=== PATIENT | male | born 1985 | race Caucasian/White ===

== ENCOUNTER 2017-05-16 07:33 | Emergency (ER) | payer OTHER ==
[~2017-05-16] VITALS: Ht 172.7 cm; Wt 78.0 kg
[2017-05-16 07:35] VITALS: BP 125/86
[2017-05-16] MEDS ORDERED: CEPH-569 PO (07:40)
[2017-05-16] MEDS ORDERED: BACITRACIN ZINC OINT UDPKT TOP ONE (08:15)
== END 2017-05-16 09:39 | disposition home or self-care (01) ==
LOC: ER 07:46
DX: L02.416 Cutaneous abscess of left lower limb (principal)
CPT/HCPCS: 10060; 10160; 99283

== ENCOUNTER 2017-05-17 09:43 | Emergency (ER) | payer OTHER ==
[~2017-05-17] VITALS: Ht 167.6 cm; Wt 71.0 kg
[~2017-05-17 09:43] MED LIST: CEPH-569 PO
[2017-05-17 09:52] VITALS: BP 119/84
[2017-05-17] MEDS ORDERED: BACITRACIN ZINC OINT UDPKT TOP ONE (10:30)
== END 2017-05-17 10:43 | disposition home or self-care (01) ==
LOC: ER 10:08
DX: L02.416 Cutaneous abscess of left lower limb (principal)
CPT/HCPCS: 10060; 99283

== ENCOUNTER 2017-06-12 12:57 | Emergency (ER) | payer OTHER ==
[~2017-06-12] VITALS: Ht 172.7 cm; Wt 73.0 kg
[2017-06-12 13:33] VITALS: BP 141/82
[2017-06-12] MEDS ORDERED: LIDOCAINE HCL 1% 20ML VIAL (Pyxis) INJ INFIL ONE (17:30)
[2017-06-12] MEDS ORDERED: BACITRACIN ZINC OINT UDPKT TOP ONE (17:30)
== END 2017-06-12 18:42 | disposition home or self-care (01) ==
LOC: ER 13:07
DX: L02.416 Cutaneous abscess of left lower limb (principal); F17.200 Nicotine dependence, unspecified, uncomplicated; Z53.21 Procedure and treatment not carried out due to patient leaving prior to being seen by health care provider
CPT/HCPCS: 10060; 87070; 87077; 87186; 87205; 99284; J3490; Z7610

== ENCOUNTER 2017-06-14 07:06 | Emergency (ER) | payer OTHER ==
[~2017-06-14] VITALS: Ht 170.2 cm; Wt 73.0 kg
[2017-06-14 07:17] VITALS: BP 130/88
== END 2017-06-14 11:20 | disposition home or self-care (01) ==
LOC: ER 07:23
DX: Z48.817 Encounter for surgical aftercare following surgery on the skin and subcutaneous tissue (principal); F17.200 Nicotine dependence, unspecified, uncomplicated; Z98.890 Other specified postprocedural states
CPT/HCPCS: 99283

== ENCOUNTER 2017-06-17 06:45 | Emergency (ER) | payer OTHER ==
[~2017-06-17] VITALS: Ht 170.2 cm; Wt 73.0 kg
[2017-06-17 06:54] VITALS: BP 125/72
== END 2017-06-17 09:38 | disposition left against medical advice (07) ==
LOC: ER 06:45
DX: Z48.00 Encounter for change or removal of nonsurgical wound dressing (principal); Z53.21 Procedure and treatment not carried out due to patient leaving prior to being seen by health care provider

== ENCOUNTER 2018-05-06 09:19 | Emergency (ER) | payer OTHER ==
[~2018-05-06] VITALS: Ht 170.2 cm; Wt 73.0 kg
[2018-05-06] MEDS ORDERED: BACITRACIN ZINC OINT UDPKT TOP ONE (11:30)
[2018-05-06] MEDS ORDERED: IBUPROFEN 600MG TABLET PO ONE (11:30)
[2018-05-06] MEDS ORDERED: LIDOCAINE HCL 1% 20ML VIAL (Pyxis) INJ INFIL ONE (11:30)
[2018-05-06 13:03] VITALS: BP 128/82
== END 2018-05-06 13:06 | disposition home or self-care (01) ==
LOC: ER 09:19
DX: L02.416 Cutaneous abscess of left lower limb (principal); F17.200 Nicotine dependence, unspecified, uncomplicated; Z98.890 Other specified postprocedural states
CPT/HCPCS: 10060; 99283; J3490

== ENCOUNTER 2018-05-08 08:25 | Emergency (ER) | payer OTHER ==
[~2018-05-08] VITALS: Ht 172.7 cm; Wt 73.0 kg
[2018-05-08 09:14] VITALS: BP 128/70
== END 2018-05-08 09:21 | disposition home or self-care (01) ==
LOC: ER 09:21
DX: Z48.00 Encounter for change or removal of nonsurgical wound dressing (principal)
CPT/HCPCS: 99283

== ENCOUNTER 2018-05-10 08:20 | Emergency (ER) | payer OTHER ==
[~2018-05-10] VITALS: Ht 170.2 cm; Wt 78.3 kg
[2018-05-10 08:24] VITALS: BP 130/75
== END 2018-05-10 09:25 | disposition home or self-care (01) ==
LOC: ER 08:20
DX: L02.416 Cutaneous abscess of left lower limb (principal); F17.200 Nicotine dependence, unspecified, uncomplicated; Z98.890 Other specified postprocedural states
CPT/HCPCS: 99281; 99282; 99283

== ENCOUNTER 2018-09-21 18:38 | Emergency (ER) | payer OTHER ==
[~2018-09-21] VITALS: Ht 167.6 cm; Wt 73.0 kg
[2018-09-21] MEDS ORDERED: BACITRACIN ZINC OINT UDPKT TOP ONE (20:45)
[2018-09-21] MEDS ORDERED: LIDOCAINE HCL/PF 1% 10 MG/ML 5ML VIAL IJ ONE (20:45)
[2018-09-21 21:11] VITALS: BP 125/75
== END 2018-09-21 21:12 | disposition home or self-care (01) ==
LOC: ER 18:38
DX: L02.416 Cutaneous abscess of left lower limb (principal); Z88.8 Allergy status to other drugs, medicaments and biological substances
CPT/HCPCS: 10060; 99283; J3490; Z7610

== ENCOUNTER 2018-09-23 14:25 | Emergency (ER) | payer OTHER ==
[~2018-09-23] VITALS: Ht 170.2 cm; Wt 73.0 kg
[2018-09-23 14:28] VITALS: BP 125/78
== END 2018-09-23 15:07 | disposition home or self-care (01) ==
LOC: ER 14:25
DX: L02.416 Cutaneous abscess of left lower limb (principal); Z79.899 Other long term (current) drug therapy
CPT/HCPCS: 99281; 99283

== ENCOUNTER 2019-01-29 07:20 | Emergency (ER) | payer MEDICAID, OTHER ==
[~2019-01-29] VITALS: Ht 172.7 cm; Wt 72.0 kg
[2019-01-29 09:02] VITALS: BP 118/75
== END 2019-01-29 09:05 | disposition home or self-care (01) ==
LOC: ER 07:20
DX: F22 Delusional disorders (principal); F17.210 Nicotine dependence, cigarettes, uncomplicated
CPT/HCPCS: 99281

== ENCOUNTER 2019-04-28 07:05 | Emergency (ER) | payer MEDICAID ==
[~2019-04-28] VITALS: Ht 170.2 cm; Wt 76.0 kg
[2019-04-28] MEDS ORDERED: IBUPROFEN 600MG TABLET PO ONE (07:45)
[2019-04-28] MEDS ORDERED: TETANUS, DIPHTHERIA, PERTUSSIS VAC/PF 0.5ML (>7YR OLD) IM ONE (07:45)
[2019-04-28] MEDS ORDERED: BACITRACIN ZINC OINT UDPKT TOP ONE (07:45)
[2019-04-28 08:40] VITALS: BP 121/69
== END 2019-04-28 08:43 | disposition home or self-care (01) ==
LOC: ER 07:05
DX: L02.415 Cutaneous abscess of right lower limb (principal); L90.5 Scar conditions and fibrosis of skin; F17.200 Nicotine dependence, unspecified, uncomplicated; Z48.00 Encounter for change or removal of nonsurgical wound dressing
CPT/HCPCS: 10060; 90471; 90715; 99283; A4217; Z7610

== ENCOUNTER 2019-05-01 08:43 | Emergency (ER) | payer MEDICAID, OTHER ==
[~2019-05-01] VITALS: Ht 170.2 cm; Wt 77.0 kg
[2019-05-01] MEDS: BACITRACIN ZINC OINT UDPKT TOP ONE (10:11)
[2019-05-01 10:42] VITALS: BP 114/62
== END 2019-05-01 10:53 | disposition home or self-care (01) ==
LOC: ER 08:43
DX: L02.416 Cutaneous abscess of left lower limb (principal); Z98.890 Other specified postprocedural states
CPT/HCPCS: 99283

== ENCOUNTER 2022-01-10 08:55 | Emergency (ER) | payer OTHER ==
[~2022-01-10] VITALS: Ht 177.8 cm; Wt 75.5 kg
[2022-01-10] MEDS ORDERED: IBUP-2437 PO (09:04)
[2022-01-10 09:59] LABS: HEMATOCRIT. 41.1 % (42.0-52.0); HEMOGLOBIN. 14.7 g/dL (14.0-18.0); MEAN CORPUSCULAR HEMOGLOBIN 30.9 pg (28.0-32.0); MEAN CORPUSCULAR VOLUME 86.1 fL (80.0-94.0); MEAN PLATELET VOLUME 7.4 fl (7.4-10.4); PLATELET 205 x1000/uL (130-400); RED BLOOD CELL COUNT 4.77 mill/uL (4.7-6.1); RED CELL DISTRIBUTION WIDTH 15.1 % (11.6-14.6)
[2022-01-10 10:06] LABS: CHLORIDE 99 mEq/L (98-107)
[2022-01-10 10:44] LABS: PLATELET ESTIMATE NORMAL
[2022-01-10] MEDS ORDERED: MAGNESIUM 2 G PREMIX 50 ML IV ONE (10:45)
[2022-01-10] MEDS ORDERED: POTASSIUM CHLORIDE 20MEQ TABLET SR PO ONE ×2 (10:45→12:30)
[2022-01-10] MEDS ORDERED: KETOROLAC 30MG/ML VIAL IV STA (11:19)
[2022-01-10] MEDS ORDERED: ONDANSETRON HCL 4MG/2ML INJ IV STA (11:19)
[2022-01-10] MEDS ORDERED: SODIUM CHLORIDE 0.9% 1,000 ML IV ONE (11:30)
[2022-01-10] MEDS ORDERED: ONDA4TAB11 PO (13:45)
[2022-01-10] MEDS ORDERED: IBUP-2029 MT (13:45)
[2022-01-10] MEDS ORDERED: POTA-205 MT (13:45)
[2022-01-10 14:40] VITALS: BP 130/81
== END 2022-01-10 14:47 | disposition home or self-care (01) ==
LOC: ER 08:55
DX: R07.89 Other chest pain (principal); F10.10 Alcohol abuse, uncomplicated; Y90.9 Presence of alcohol in blood, level not specified; Z20.822 Contact with and (suspected) exposure to COVID-19; Z98.890 Other specified postprocedural states
CPT/HCPCS: 36415; 71045; 80053; 83880; 84484; 85025; 87426; 93005; 96361; 96365; 96375; 99285; C9803; J1885; J2405; J3475; J7030

== ENCOUNTER 2022-01-12 12:17 | Emergency (ER) | payer OTHER ==
[~2022-01-12] VITALS: Ht 165.1 cm; Wt 77.0 kg
[~2022-01-12 12:17] MED LIST changes: +IBUP-2029 MT; +IBUP-2437 PO; +ONDA4TAB11 PO; +POTA-205 MT
[2022-01-12 12:26] VITALS: BP 154/101
[2022-01-12] MEDS ORDERED: MELA1TAB51 MT (15:03)
== END 2022-01-12 15:36 | disposition home or self-care (01) ==
LOC: ER 12:17
DX: R07.89 Other chest pain (principal)
CPT/HCPCS: 93005; 99281

== ENCOUNTER 2022-05-31 06:30 | Emergency (ER) | payer OTHER ==
[~2022-05-31] VITALS: Ht 172.7 cm; Wt 77.8 kg
[~2022-05-31 06:30] MED LIST changes: +MELA1TAB51 MT
[2022-05-31] MEDS ORDERED: ONDANSETRON 4MG ODT PO STA (08:26)
[2022-05-31 09:00] LABS: BASOPHILS % 0.3 % (0.0-2.0); EOSINOPHILS % 0.5 % (0.0-5.0); HEMATOCRIT. 43.5 % (42.0-52.0); HEMOGLOBIN. 14.8 g/dL (14.0-18.0); LYMPHOCYTES % 9.8 % (20.0-50.0); MEAN CORPUSCULAR HEMOGLOBIN 30.5 pg (28.0-32.0); MEAN CORPUSCULAR VOLUME 89.9 fL (80.0-94.0); MEAN PLATELET VOLUME 8.1 fl (7.4-10.4); MONOCYTES % 7.4 % (2.0-8.0); PLATELET 171 x1000/uL (130-400); RED BLOOD CELL COUNT 4.83 mill/uL (4.7-6.1); RED CELL DISTRIBUTION WIDTH 15.5 % (11.6-14.6)
[2022-05-31 09:06] LABS: CHLORIDE 103 mEq/L (98-107)
[2022-05-31] MEDS ORDERED: IBUPROFEN 600MG TABLET PO ONE (09:30)
[2022-05-31 10:48] VITALS: BP 132/86
[2022-06-01] MEDS ORDERED: ONDA4TAB50 MT (10:41)
[2022-06-01] MEDS ORDERED: ONDANSETRON 4MG ODT PO NR (10:45)
== END 2022-05-31 11:19 | disposition home or self-care (01) ==
LOC: ER 06:30
DX: A08.4 Viral intestinal infection, unspecified (principal); K80.20 Calculus of gallbladder without cholecystitis without obstruction; R74.01 Elevation of levels of liver transaminase levels; R04.0 Epistaxis; R22.42 Localized swelling, mass and lump, left lower limb
CPT/HCPCS: 36415; 76705; 80053; 83690; 85025; 99284; Q0162

== ENCOUNTER 2022-06-01 10:07 | Emergency (ER) | payer MEDICAID, OTHER ==
[~2022-06-01] VITALS: Ht 172.7 cm; Wt 76.0 kg
[2022-06-01 10:11] VITALS: BP 150/93
[2022-06-01] MEDS ORDERED: ONDA4TAB50 MT (10:41)
== END 2022-06-01 10:59 | disposition home or self-care (01) ==
LOC: ER 10:07
DX: K52.9 Noninfective gastroenteritis and colitis, unspecified (principal)
CPT/HCPCS: 99281

== ENCOUNTER 2022-08-10 01:19 | Emergency (ER) | payer MEDICAID ==
[~2022-08-10 01:19] MED LIST changes: +ONDA4TAB50 MT
== END 2022-08-10 03:57 | disposition left against medical advice (07) ==
LOC: ER 01:19
DX: Z53.21 Procedure and treatment not carried out due to patient leaving prior to being seen by health care provider (principal)

== ENCOUNTER 2022-08-14 13:03 | Emergency (ER) | payer MEDICAID, OTHER ==
[~2022-08-14] VITALS: Ht 160 cm; Wt 81.0 kg
[2022-08-14 13:12] VITALS: BP 132/89
[2022-08-14] MEDS ORDERED: ACETAMINOPHEN 325MG TABLET PO ONE (15:45)
[2022-08-14 15:54] LABS: HEMATOCRIT. 40.9 % (42.0-52.0); HEMOGLOBIN. 13.8 g/dL (14.0-18.0); MEAN CORPUSCULAR HEMOGLOBIN 30.6 pg (28.0-32.0); MEAN CORPUSCULAR VOLUME 91.1 fL (80.0-94.0); MEAN PLATELET VOLUME 7.9 fl (7.4-10.4); PLATELET 296 x1000/uL (130-400); RED BLOOD CELL COUNT 4.49 mill/uL (4.7-6.1); RED CELL DISTRIBUTION WIDTH 16.1 % (11.6-14.6)
[2022-08-14 16:09] LABS: CHLORIDE 103 mEq/L (98-107)
[2022-08-14 16:36] LABS: PLATELET ESTIMATE NORMAL
== END 2022-08-14 17:25 | disposition home or self-care (01) ==
LOC: ER 13:03
DX: J06.9 Acute upper respiratory infection, unspecified (principal); M25.562 Pain in left knee; I49.9 Cardiac arrhythmia, unspecified
CPT/HCPCS: 36415; 71045; 73562; 80053; 83880; 84484; 85025; 93005; 99285

== ENCOUNTER 2023-01-09 11:48 | Emergency (ER) | payer OTHER ==
[~2023-01-09] VITALS: Ht 172.7 cm; Wt 78.0 kg
[2023-01-09 11:59] VITALS: BP 123/64; RESP 12; TEMP 98.6; O2SAT 97
[2023-01-09 12:01] VITALS: PULSE 83
[2023-01-09 12:18] LABS: CLARITY URINE CLEAR (CLEAR); COLOR URINE YELLOW (YELLOW); GLUCOSE URINE NEGATIVE (NEGATIVE); KETONES URINE TRACE (NEGATIVE); LEUKOCYTE ESTERASE URINE NEGATIVE (NEGATIVE); NITRITE URINE NEGATIVE (NEGATIVE); OCCULT BLOOD URINE NEGATIVE (NEGATIVE); PH URINE 5.5 (4.5-8.0); PROTEIN URINE NEGATIVE (NEGATIVE); SPECIFIC GRAVITY URINE 1.027 (1.005-1.030); UROBILINOGEN URINE 0.2 E.U./dL (0.2-1.0)
[2023-01-09] MEDS ORDERED: FLUC150T46 PO (13:23)
[2023-01-09] MEDS ORDERED: NAPR-681 PO (13:23)
[2023-01-09] MEDS ORDERED: CLOT15CR27 TP (13:23)
[2023-01-09] MEDS ORDERED: DOXY-456 PO (13:23)
== END 2023-01-09 13:37 | disposition home or self-care (01) ==
LOC: ER 12:38
DX: B35.6 Tinea cruris (principal); Z79.899 Other long term (current) drug therapy
CPT/HCPCS: 81003; 82962; 99283

== ENCOUNTER 2023-04-18 05:16 | Emergency (ER) | payer OTHER ==
[~2023-04-18] VITALS: Ht 172.7 cm; Wt 82.0 kg
[~2023-04-18 05:16] MED LIST changes: +CLOT15CR27 TP; +DOXY-456 PO; +FLUC150T46 PO; +NAPR-681 PO
[2023-04-18 05:25] VITALS: O2SAT 99
[2023-04-18 06:06] LABS: CLARITY URINE CLEAR (CLEAR); COLOR URINE DARK YELLOW (YELLOW); GLUCOSE URINE NEGATIVE (NEGATIVE); KETONES URINE NEGATIVE (NEGATIVE); LEUKOCYTE ESTERASE URINE NEGATIVE (NEGATIVE); NITRITE URINE NEGATIVE (NEGATIVE); OCCULT BLOOD URINE NEGATIVE (NEGATIVE); PROTEIN URINE NEGATIVE (NEGATIVE); SPECIFIC GRAVITY URINE 1.013 (1.005-1.030)
[2023-04-18 06:20] LABS: BASOPHILS % 0.6 % (0.0-2.0); EOSINOPHILS % 0.4 % (0.0-5.0); HEMATOCRIT. 37.5 % (42.0-52.0); HEMOGLOBIN. 12.9 g/dL (14.0-18.0); LYMPHOCYTES % 25.1 % (20.0-50.0); MEAN CORPUSCULAR HGB CONC 34.5 g/dL (31.0-37.0); MEAN CORPUSCULAR VOLUME 86.8 fL (80.0-94.0); MEAN PLATELET VOLUME 8.4 fl (7.4-10.4); MONOCYTES % 7.3 % (2.0-8.0); NEUTROPHILS % 66.6 % (40.0-76.0); PLATELET 155 x1000/uL (130-400); RED BLOOD CELL COUNT 4.32 mill/uL (4.7-6.1); RED CELL DISTRIBUTION WIDTH 15.4 % (11.6-14.6); WHITE BLOOD COUNT 6.1 x1000/uL (4.5-11.0)
[2023-04-18 06:20] LABS: *AMPHETAMINES SCREEN URINE NEGATIVE (NEGATIVE); *BARBITURATES SCREEN URINE NEGATIVE (NEGATIVE); *BENZODIAZEPINES SCREEN URINE NEGATIVE (NEGATIVE); *COCAINE SCREEN URINE NEGATIVE (NEGATIVE); CANNABINOID URINE SCREEN NEGATIVE (NEGATIVE); ECSTASY MDMA SCREEN URINE NEGATIVE (NEGATIVE); METHADONE URINE SCREEN NEGATIVE (NEGATIVE); OPIATES URINE SCREEN NEGATIVE (NEGATIVE); PHENCYCLIDINE URINE SCREEN NEGATIVE (NEGATIVE)
[2023-04-18 06:37] LABS: CHLORIDE 107 mEq/L (98-107); INDEX HEMOLYSI 1 (1-3); INDEX ICTERIC 1 (1-4); INDEX LIPEMIC 1 (1-3); SODIUM 138 mEq/L (136-145)
[2023-04-18 06:45] LABS: ALANINE AMINOTRANSFERASE 58 IU/L (13-61); ALBUMIN 3.1 g/dL (3.4-5.0); ASPARTATE AMINOTRANSFERASE 63 IU/L (15-37); BILIRUBIN TOTAL 1.3 mg/dL (0.1-1.0); CALCIUM 7.9 mg/dL (8.5-10.1); CARBON DIOXIDE 25 mEq/L (21-32); CREATININE 0.7 mg/dL (0.6-1.3); ETHANOL BLOOD < 10 mg/dL (<10); GLUCOSE 113 mg/dL (70-105); PROTEIN TOTAL 6.3 g/dL (6.0-8.3); UREA NITROGEN BLOOD 5 mg/dL (7-21)
[2023-04-18 11:33] VITALS: BP 125/78; PULSE 80; RESP 16; TEMP 98.6
== END 2023-04-18 12:48 | disposition home or self-care (01) ==
LOC: ER 05:16
DX: Z00.00 Encounter for general adult medical examination without abnormal findings (principal); R44.0 Auditory hallucinations; Z79.899 Other long term (current) drug therapy; Z20.822 Contact with and (suspected) exposure to COVID-19
CPT/HCPCS: 80053; 80305; 81003; 80320; 85025; 36415; 99283; 87426; C9803; G0480

== ENCOUNTER 2024-01-09 16:10 | Emergency (ER) | payer OTHER ==
[~2024-01-09] VITALS: Ht 165.1 cm; Wt 80.0 kg
[2024-01-09 16:16] VITALS: BP 136/86; PULSE 89; RESP 18; O2SAT 100
[2024-01-09 17:29] LABS: CHLORIDE 98 mEq/L (98-107); POTASSIUM 3.8 mEq/L (3.5-5.1); SODIUM 135 mEq/L (136-145)
[2024-01-09 17:30] LABS: CARBON DIOXIDE 29 mEq/L (21-32)
[2024-01-09 17:31] LABS: BASOPHILS % 0.5 % (0.0-2.0); EOSINOPHILS % 0.3 % (0.0-5.0); HEMATOCRIT. 42.4 % (42.0-52.0); HEMOGLOBIN. 14.7 g/dL (14.0-18.0); LYMPHOCYTES % 18.8 % (20.0-50.0); MEAN CORPUSCULAR HEMOGLOBIN 31.1 pg (28.0-32.0); MEAN CORPUSCULAR HGB CONC 34.6 g/dL (31.0-37.0); MEAN CORPUSCULAR VOLUME 89.8 fL (80.0-94.0); MEAN PLATELET VOLUME 9.1 fl (7.4-10.4); MONOCYTES % 5.7 % (2.0-8.0); NEUTROPHILS % 74.7 % (40.0-76.0); PLATELET 194 x1000/uL (130-400); RED BLOOD CELL COUNT 4.73 mill/uL (4.7-6.1); WHITE BLOOD COUNT 8.2 x1000/uL (4.5-11.0)
[2024-01-09 17:33] LABS: INR 0.9; PARTIAL THROMBOPLASTIN TIME 24.1 sec (23.4-31.0); PROTHROMBIN TIME 10.6 sec (9.6-11.0)
[2024-01-09 17:35] LABS: CREATININE 0.6 mg/dL (0.6-1.3); GLUCOSE 96 mg/dL (70-105); UREA NITROGEN BLOOD 7 mg/dL (9-23)
[2024-01-09 17:37] LABS: ALANINE AMINOTRANSFERASE 53 IU/L (10-49); ALBUMIN 4.4 g/dL (3.2-4.8); ASPARTATE AMINOTRANSFERASE 73 IU/L (<34); BILIRUBIN DIRECT 0.6 mg/dL (<=3.0); BILIRUBIN TOTAL 2.1 mg/dL (0.1-1.0); PROTEIN TOTAL 6.8 g/dL (6.0-8.3)
[2024-01-09 19:13] VITALS: TEMP 98.6
[2024-01-09] MEDS: DIPHENOXYLATE/ATROPINE 2.5/0.025MG TABLET PO ONE (19:13)
[2024-01-09] MEDS: ACETAMINOPHEN 325MG TABLET PO ONE (19:13)
[2024-01-09] MEDS ORDERED: IBUP-1523 MT (19:18)
[2024-01-09] MEDS ORDERED: ONDA4TAB50 MT (19:18)
[2024-01-09] MEDS ORDERED: DIPH1TAB24 MT (19:18)
[2024-01-09] MEDS ORDERED: TOPUD MT (19:18)
[2024-01-09 19:34] LABS: CLARITY URINE CLEAR (CLEAR); COLOR URINE ORANGE (YELLOW); GLUCOSE URINE NEGATIVE (NEGATIVE); KETONES URINE 3+ (NEGATIVE); LEUKOCYTE ESTERASE URINE NEGATIVE (NEGATIVE); NITRITE URINE NEGATIVE (NEGATIVE); OCCULT BLOOD URINE NEGATIVE (NEGATIVE); PH URINE 7.5 (4.5-8.0); PROTEIN URINE NEGATIVE (NEGATIVE); SPECIFIC GRAVITY URINE 1.007 (1.005-1.030)
== END 2024-01-09 19:40 | disposition home or self-care (01) ==
LOC: ER 16:10
DX: N23 Unspecified renal colic (principal); K52.9 Noninfective gastroenteritis and colitis, unspecified; S30.1XXA Contusion of abdominal wall, initial encounter; Z79.899 Other long term (current) drug therapy; V49.9XXA Car occupant (driver) (passenger) injured in unspecified traffic accident, initial encounter; Y93.89 Activity, other specified; Y92.89 Other specified places as the place of occurrence of the external cause; Y99.8 Other external cause status
CPT/HCPCS: 36415; 74176; 80048; 80076; 81003; 85025; 86850; 86900; 99284